=== PATIENT | male | born 1945 | race Caucasian/White ===

== ENCOUNTER 2018-03-29 23:38 | Emergency (ER) | payer MEDICARE, OTHER ==
[2018-03-29] MEDS: LORazepam 1 MG Tab PO ONE (23:53)
--- NOTE | 2018-03-30 16:46 | ER ---
DATE OF SERVICE: 03/29/2018 HISTORY OF PRESENT ILLNESS: A 73-year-old male here requesting to have one dose of Ativan for anxiety. The patient gets an anxiety attack every once in a while. He is up here from [place] on a fishing trip and he is not sure if it is some claustrophobia mixed in with it or not, but he is feeling quite anxious this evening and he does have Ativan tablets at home that he can take when he gets an episode like this. He forgot to bring them with him. The patient states he takes a 1 mg tablet, usually only 1 dose. He is wondering if he can get that today. The patient denies feeling sick. He has not had any falls or injuries. OBJECTIVE: GENERAL APPEARANCE: The patient is awake and alert. No obvious distress. VITAL SIGNS: Reviewed as listed. Physical exam is brief. LUNGS: Clear. CARDIAC: Heart sounds distinct without murmurs. SKIN: Warm and dry. DIAGNOSIS: Anxiety with history of the same. TREATMENT PLAN: I will give the patient Ativan 1 mg tablet p.o. x1 dose. No further medications were given. He is to go home and/or go up to where he is staying and try to get a good night's sleep. The patient plans on going home tomorrow. Followup is p.r.nTierra MOTLEY/ILANA /[id number] MTDD
== END 2018-03-29 23:59 | disposition home or self-care (01) ==
LOC: LB.ED 23:38
DX: F41.9 Anxiety disorder, unspecified (principal)
CPT/HCPCS: 99283; A9270-GY

== ENCOUNTER 2020-11-16 15:19 | Emergency (ER) | payer MEDICARE, OTHER ==
[2020-11-16] MEDS ORDERED: Lidocaine 1% PF 2 ML SDV INJECT ONE (16:05)
[2020-11-16] MEDS ORDERED: Lidocaine 1% 20 ML MDV INJECT ONE (16:40)
[2020-11-16] MEDS ORDERED: Diphtheria,Pertussis(Acell),Tetanus Vaccine 0.5 ML SDV IM ONE (16:41)
--- NOTE | 2020-11-16 19:13 | ER ---
REASON FOR EMERGENCY ROOM VISIT: [place], left index finger. HISTORY: This 75-year-old woman comes in because of a fishhook impaled on the dorsum of his proximal left index finger. His last tetanus toxoid is uncertain. He feels that it was several years ago, but he cannot be sure as to the exact date. PHYSICAL EXAMINATION: GENERAL: He is afebrile and in no acute distress. EXTREMITIES: He has a barbed fishhook impaled in the proximal phalanx of the dorsal aspect of his left index finger. Distal capillary refill and sensation are normal. The fishhook itself appears to be clean. FURTHER EMERGENCY ROOM COURSE: The area was prepped with alcohol followed by Betadine and then 2 mL Xylocaine was used to achieve local anesthesia. The fishhook was removed by pushing it all the way through without any difficulty after cutting off the end with the eyehole on it. There was no difficulty. There was only slight oozing at both puncture sites. Occlusive dressing was applied. He was instructed as to the symptoms and signs of infection and I did discuss with him why I do not feel a prophylactic antibiotics are indicated at this time. He understands and agrees with this plan. He was given a Tdap booster before being discharged. All questions were answered. JAHAIRA /[id number]
== END 2020-11-16 16:22 | disposition home or self-care (01) ==
LOC: LB.ED 15:19
DX: S60.451A Superficial foreign body of left index finger, initial encounter (principal); Z23 Encounter for immunization; W45.8XXA Other foreign body or object entering through skin, initial encounter
CPT/HCPCS: 90471; 90715; 99283